=== PATIENT | male | born 1975 | race Caucasian/White ===

== ENCOUNTER 2025-01-31 21:31 | Emergency (ER) | payer SELFPAY ==
[2025-01-31] MEDS: valACYclovir 500 MG Tab PO ONE (22:36)
== END 2025-01-31 22:46 | disposition home or self-care (01) ==
LOC: MW.ED 21:31
DX: K13.0 Diseases of lips (principal); Z88.0 Allergy status to penicillin; Z79.899 Other long term (current) drug therapy; Z75.3 Unavailability and inaccessibility of health-care facilities
CPT/HCPCS: 99283; A9270; 99282